=== PATIENT | male | born 1940 | race Caucasian/White ===

== ENCOUNTER 2019-06-09 08:54 | Outpatient (CLI) | payer MEDICARE, OTHER ==
--- NOTE | 2019-06-09 11:33 | BD ---
BONE DENSITOMETRY USING DEXA: Date: 06/09/2019 HISTORY: Age-related osteoporosis without current pathologic fracture. FINDINGS: Right Hip: BMD (g/cm2) Neck 0.628 T-Score: -2.2 Z-Score: -0.8 Total 0.875 T-Score: -1.0 Z-Score: -0.1 Left Hip: Neck 0.688 T-Score: -1.8 Z-Score: -0.3 Total 0.923 T-Score: -0.7 Z-Score: 0.2 10 year fracture risk for major osteoporotic fracture is 9.4% and for a hip fracture is 3.8%. IMPRESSION: Osteopenia. POS: [facility]
== END 2019-06-09 08:55 | disposition home or self-care (01) ==
LOC: BICMAMMO 08:54
PROVIDERS: ATTEND Internal Medicine Rheumatology
DX: M81.0 Age-related osteoporosis without current pathological fracture (principal); M85.851 Other specified disorders of bone density and structure, right thigh; M85.852 Other specified disorders of bone density and structure, left thigh
CPT/HCPCS: 77080